=== PATIENT | male | born 1990 | race Caucasian/White ===

== ENCOUNTER 2021-02-15 20:30 | Emergency (ER) | payer OTHER ==
[~2021-02-15] VITALS: Ht 170.2 cm; Wt 68.0 kg
[2021-02-15] MEDS ORDERED: SODIUM CHLORIDE 0.9% 1,000 ML IV ONE (21:00)
[2021-02-15 22:58] VITALS: BP 127/79
== END 2021-02-15 23:41 | disposition left against medical advice (07) ==
LOC: EMS 20:31
DX: R07.89 Other chest pain (principal); T40.7X5A Adverse effect of cannabis (derivatives), initial encounter; F17.210 Nicotine dependence, cigarettes, uncomplicated; F12.90 Cannabis use, unspecified, uncomplicated; Z88.6 Allergy status to analgesic agent; Y92.89 Other specified places as the place of occurrence of the external cause
CPT/HCPCS: 71045; 93005; 99284; J7030